=== PATIENT | male | born 1965 | race Caucasian/White ===

== ENCOUNTER 2019-04-02 12:20 | Emergency (ER) | payer OTHER ==
[2019-04-02 12:38] VITALS: BP 153/100; PULSE 80; TEMP 98.1; BMI 28.2
--- NOTE | 2019-04-02 13:32 | PDOC ---
History of Present Illness - General Chief Complaint: Blood Pressure Problem Stated Complaint: CHEST PAIN/HYPERTENSION Time Seen by Provider: 04/02/19 12:56 History Source: Patient Exam Limitations: Clinical Condition - History of Present Illness Initial Comments: 04/02/19 13:28 Patient with no significant past medical history and has not seen any medical care over the past 6 years presented with complaint of 2-day history of headache , wheezing, intermittent chest tightness and persistent elevated blood pressures when he checks his blood pressure for the past 2 days. Patient report has strong family history of cardiomyopathy and hypertension but has not seen PCP or have any medical care in the past 6 years. Denies nausea, vomiting , palpitation, shortness of breath, chest pains, numbness or tingling sensation , blurry vision or change in vision. Denies fever, chills. Denies any other symptoms Is this a multiple visit Asthma Patient?: No Past History - Past Medical History Allergies/Adverse Reactions: Allergies Allergy/AdvReac Type Severity Reaction Status Date / Time No Known Allergies Allergy Verified 04/02/19 12:34 Home Medications: Ambulatory Orders Amlodipine Besylate [Norvasc -] 5 mg PO DAILY #30 tablet 04/02/19 COPD: No HTN: Yes (family hx of HTN) - Psycho Social/Smoking Cessation Hx Smoking History: Never smoked Review of Systems - Review of Systems Able to Perform ROS?: Yes Is the patient limited Polish proficient: No Constitutional: Yes: Malaise. No: Chills, Fever HEENTM: Yes: Symptoms Reported, See HPI. No: Eye Pain, Blurred Vision, Tearing , Recent change in vision, Double Vision, Cataracts, Ear Pain, Ocular Prothesis , Ear Discharge, Nose Pain, Nose Congestion, Tinnitus, Nose Bleeding, Hearing Loss, Throat Pain, Throat Swelling, Mouth Pain, Dental Problems, Difficulty Swallowing, Mouth Swelling, Other Respiratory: Yes: Symptoms reported, See HPI, Shortness of Breath (intermittent) , Wheezing (intermittent). No: Cough, Orthopnea, SOB with Exertion, SOB at Rest , Stridor, Productive cough, Hemoptysis, Other Cardiac (ROS): Yes: Symptoms Reported, See HPI, Lightheadedness (intermittent). No: Chest Pain, Edema, Irregular Heart Rate, Palpitations, Syncope, Chest Tightness, Other ABD/GI: No: Symptoms Reported, See HPI, Nausea, Vomiting All Other Systems: Reviewed and Negative *Physical Exam - Vital Signs Last Vital Signs Temp Pulse Resp BP Pulse Ox 98.1 F 80 16 153/100 99 04/02/19 12:36 04/02/19 12:36 04/02/19 12:36 04/02/19 12:36 04/02/19 12:36 - Physical Exam 04/02/19 13:31 GENERAL: Well developed, well nourished. Awake and alert. No acute distress. HEENT: Normocephalic, atraumatic. PERRLA, EOMI. No conjunctival pallor. Sclera are non-icteric. Moist mucous membranes. Oropharynx is clear. NECK: Supple. Full ROM. CARDIOVASCULAR: Regular rate and rhythm. No murmurs, rubs, or gallops. Distal pulses are 2+ and symmetric. PULMONARY: No evidence of respiratory distress. Lungs clear to auscultation bilaterally. No wheezing, rales or rhonchi. ABDOMINAL: Soft. Non-tender. Non-distended. No rebound or guarding. No organomegaly. Normoactive bowel sounds. MUSCULOSKELETAL Normal range of motion at all joints. EXTREMITIES: No cyanosis. No clubbing. No edema. No calf tenderness. SKIN: Warm and dry. Normal capillary refill. No rashes. No jaundice. NEUROLOGICAL: Alert, awake, appropriate. Gait is normal without ataxia. PSYCHIATRIC: Cooperative. Good eye contact. Appropriate mood General Appearance: Yes: Nourished, Appropriately Dressed. No: Apparent Distress ED Treatment Course - LABORATORY CBC & Chemistry Diagram: 04/02/19 13:21 04/02/19 13:21 - RADIOLOGY Radiology Studies Ordered: Category Date Time Status CHEST PA & LAT [RAD] Stat Radiology 04/02/19 13:23 Ordered Medical Decision Making - Medical Decision Making 04/02/19 13:30 Patient with no significant past medical history and has not seen any medical care over the past 6 years presented with complaint of 2-day history of headache , wheezing, intermittent chest tightness and persistent elevated blood pressures when he checks his blood pressure for the past 2 days. Patient report has strong family history of cardiomyopathy and hypertension but has not seen PCP or have any medical care in the past 6 years. Denies nausea, vomiting , palpitation, shortness of breath, chest pains, numbness or tingling sensation , blurry vision or change in vision. Denies fever, chills. Denies any other symptoms Exam significant for mildly elevated BPs otherwise unremarkable exam with patient in no acute distress. EKG done from triage shows no acute abnormality. Patient symptoms likely undiagnosed hypertension with bronchospasm from URI versus less likely cardiogenic symptoms. CBC, CMP and cardiac profile lab ordered. Checks x-ray ordered to rule out acute abnormality given patient with complaint of worsening wheezing since last night. Treat based on lab and imaging results 04/02/19 15:21 CBC shows no acute abnormality. Cardiac profile and chemistry lab unremarkable. Chest x-ray shows no acute infiltrate abnormality. Patient symptoms likely caused elevated BPs and stable for discharge on low-dose amlodipine daily with referral to PCP to establish care Discharge - Discharge Information Problems reviewed: Yes Clinical Impression/Diagnosis: Essential hypertension, Dizziness Condition: Stable Disposition: HOME - Admission No - Additional Discharge Information Prescriptions: Amlodipine Besylate [Norvasc -] 5 mg PO DAILY #30 tablet - Follow up/Referral Referrals: [facility] [place] [Provider Group] - Patient Discharge Instructions Patient Printed Discharge Instructions: DI for High Blood Pressure, How to Monitor Your Blood Pressure at Home Additional Instructions: Your blood work is normal. Your chest x-ray shows no pneumonia. The symptoms is likely caused by high blood pressure. Take prescribed medication for blood pressure and follow-up referred primary care to establish primary care - Post Discharge Activity
[2019-04-02 13:38] LABS: BASO % 0.5 % (0-2.0); EOS % 6.2 % (0-4.5); HEMATOCRIT 48.9 % (35.4-49); HEMOGLOBIN 16.5 GM/dL (11.7-16.9); LYMPH % 23.8 % (8-40); MCH 26.8 pg (25.7-33.7); MCHC 33.7 g/dl (32.0-35.9); MEAN CELL VOLUME 79.6 fl (80-96); MEAN PLT VOLUME 10.3 fl (7.5-11.1); MONO % 5.7 % (3.8-10.2); NEUT % 63.8 % (42.8-82.8); PLATELET COUNT 162 K/MM3 (134-434); RBC 6.15 M/mm3 (4.00-5.60); RDW 14.3 % (11.9-15.9); WHITE BLOOD COUNT 5.4 K/mm3 (4.0-10.0)
[2019-04-02 14:14] LABS: ALK PHOS 71 U/L (45-117); ANION GAP 8 MMOL/L (8-16); BLOOD UREA NITROGEN 11.7 mg/dL (7-18); CALCIUM 9.3 mg/dL (8.5-10.1); CHLORIDE 105 mmol/L (98-107); CO2 26 mmol/L (21-32); CREATININE 1.1 mg/dL (0.55-1.3); GLUCOSE,RANDOM 125 mg/dL (74-106); POTASSIUM 3.8 mmol/L (3.5-5.1); SGOT/AST 26 U/L (15-37); SGPT/ALT 41 U/L (13-61); SODIUM 140 mmol/L (136-145); TOT PROT 7.8 g/dl (6.4-8.2)
--- NOTE | 2019-04-04 17:22 | EKG ---
Test Reason : Blood Pressure : / mmHG Vent. Rate : 077 BPM Atrial Rate : 077 BPM P-R Int : 166 ms QRS Dur : 090 ms QT Int : 360 ms P-R-T Axes : 062 -04 029 degrees QTc Int : 407 ms NORMAL SINUS RHYTHM POSSIBLE LEFT ATRIAL ENLARGEMENT NONSPECIFIC T WAVE ABNORMALITY ABNORMAL ECG NO PREVIOUS ECGS AVAILABLE Confirmed by NICOLASA JONES MD ([id number]) on 04/04/2019 5:22:40 PM Referred By: Confirmed By:NICOLASA JONES MD
== END 2019-04-02 14:50 | disposition home or self-care (01) ==
LOC: JER 12:20
DX: I10 Essential (primary) hypertension (principal); R42 Dizziness and giddiness
CPT/HCPCS: 36415; 71046-TC-FY; 80053; 82550; 82553; 84439; 84443; 84484; 85025; 93005; 93010; 99285-25

== ENCOUNTER 2019-04-02 23:48 | Emergency (ER) | payer OTHER ==
[2019-04-03 00:02] VITALS: PULSE 94; TEMP 98; BMI 29.4
--- NOTE | 2019-04-03 02:44 | PDOC ---
Attending Attestation - Resident Resident Name: Kelby Garvin - ED Attending Attestation I have performed the following: I have examined & evaluated the patient, The case was reviewed & discussed with the resident, I agree w/resident's findings & plan, Exceptions are as noted - HPI HPI: 04/16/19 19:39 See resident HPI - Physicial Exam PE: 04/16/19 19:39 Agree with exam as documented by resident - Medical Decision Making 04/16/19 19:40 Asymptomatic HTN, BP 148/102 evaluation for end organ damage not indicated dc, f/u with pcp
--- NOTE | 2019-04-03 02:49 | PDOC ---
History of Present Illness - General Chief Complaint: Blood Pressure Problem Stated Complaint: HYPERTENTION History Source: Patient Exam Limitations: No Limitations - History of Present Illness Initial Comments: 04/09/19 20:10 53 yo M with no past medical history (poor follow up with medicine) presents to the emergency department with concerns of BP. Per the patient, he presented to the emergency department within the past 24 hours for high blood pressure and was prescribed amlodipine 5 mg. Per the patient, he took the medications 1-2 hours prior to presentation and was concerned that his BP was still elevated with a systolic of 140s. The patient denies symptoms. Denies the following: fevers, chills, headache, visual changes, nausea, vomiting, chest pain, abdominal pain, dysuria, hematuria, diarrhea, and leg pain/swelling. Allergies: NKDA Past History - Past Medical History Allergies/Adverse Reactions: Allergies Allergy/AdvReac Type Severity Reaction Status Date / Time No Known Allergies Allergy Verified 04/02/19 23:59 Home Medications: Ambulatory Orders Amlodipine Besylate [Norvasc -] 5 mg PO DAILY #30 tablet 04/02/19 COPD: No HTN: Yes (family hx of HTN) - Psycho Social/Smoking Cessation Hx Smoking History: Never smoked Have you smoked in the past 12 months: No Information on smoking cessation initiated: No Hx Alcohol Use: No Drug/Substance Use Hx: No Review of Systems - Review of Systems Able to Perform ROS?: Yes Is the patient limited Welsh proficient: No Constitutional: No: Chills, Diaphoresis, Fever, Weight Stable HEENTM: No: Eye Pain, Ear Pain, Nose Pain, Throat Pain, Mouth Pain Respiratory: No: Cough, Shortness of Breath, Hemoptysis Cardiac (ROS): No: Chest Pain, Lightheadedness, Palpitations, Chest Tightness ABD/GI: No: Constipated, Diarrhea, Difficulty Swallowing, Nausea, Poor Fluid Intake, Rectal Bleeding, Vomiting, Tarry Stools : No: Burning, Dysuria, Hematuria, Incontinence Musculoskeletal: No: Back Pain, Joint Pain, Neck Pain Integumentary: No: Bruising, Flushing, Rash Neurological: No: Headache, Seizure, Tingling, Tremors Psychiatric: No: Change in Appetite Endocrine: No: Unexplained Weight Loss Hematologic/Lymphatic: No: Anemia *Physical Exam - Vital Signs Last Vital Signs Temp Pulse Resp BP Pulse Ox 98.0 F 94 H 20 148/102 H 98 04/02/19 23:59 04/02/19 23:59 04/02/19 23:59 04/02/19 23:59 04/02/19 23:59 - Physical Exam General Appearance: Yes: Nourished, Appropriately Dressed. No: Apparent Distress, Intoxicated HEENT: positive: EOMI, JOHANA, Normal ENT Inspection, Normal Voice, Symmetrical, TMs Normal, Pharynx Normal, Hearing Grossly Normal. negative: Pale Conjunctivae , Scleral Icterus (R), Scleral Icterus (L), Muffled/Hoarse voice, Pharyngeal Erythema, Tonsillar Exudate, Tonsillar Erythema, Nasal Congestion, Excessive drooling Neck: positive: Trachea midline, Supple. negative: Tender, Lymphadenopathy (R) , Lymphadenopathy (L) Respiratory/Chest: positive: Lungs Clear, Normal Breath Sounds. negative: Chest Tender, Respiratory Distress, Accessory Muscle Use, Rales, Rhonchi, Stridor, Wheezing, Hyperresonant Cardiovascular: positive: Regular Rhythm, Regular Rate, S1, S2. negative: Systolic Murmur Gastrointestinal/Abdominal: positive: Normal Bowel Sounds, Flat, Soft. negative : Tender, Distended, Guarding, Rebound, Tenderness Lymphatic: negative: Adenopathy Musculoskeletal: positive: Normal Inspection, CVA Tenderness. negative: Vertebral Tenderness Extremity: positive: Normal Capillary Refill, Normal Inspection, Normal Range of Motion. negative: Tender, Swelling, Calf Tenderness Integumentary: positive: Normal Color, Dry, Warm. 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 Per the patient, he presented to the emergency department within the past 24 hours for high blood pressure and was prescribed amlodipine 5 mg. Initial vitals; Initial Vital Signs Temp Pulse Resp BP Pulse Ox 98.0 F 94 H 20 148/102 H 98 04/02/19 23:59 04/02/19 23:59 04/02/19 23:59 04/02/19 23:59 04/02/19 23:59 Work up: patient presents to the emergency department with concerns of elevated blood pressure after a recent visit to our ED for similar chief complaint I explained to the patient that their blood pressure was not at a concerning level The patient denies current symptoms, specifically denying the following: chest pain, SOB, nausea, vomiting, lightheadedness, back pain, abdominal pain, and neck pain. Patient was given education on concerning blood pressure levels and advised to follow up with their PMD for HTN evaluation. The patient understood the plan and agreed. He also understands the need to take the amlodipine as directed on the label in the future. Dispo: Discharge Discharge - Discharge Information Problems reviewed: Yes Clinical Impression/Diagnosis: High blood pressure Disposition: HOME - Admission No - Follow up/Referral Referrals: [facility] [place] [facility] [place] [Provider Group] Edilberto Watts MD [Staff Physician] - - Patient Discharge Instructions Patient Printed Discharge Instructions: DI for High Blood Pressure, Abdominal Hernia, How to Monitor Your Blood Pressure at Home Additional Instructions: You were seen in the emergency department for the evaluation of your high blood pressure. Your blood pressure is within normal limits. Please come to the emergency department if you systolic blood pressure, which is the top number, is greater than 180 and please come to the emergency department if your blood pressure on the bottom, the diastolic, is 120. Please follow up with the primary medical doctor referred to you within 1 week after discharge for blood pressure management. THIS IS VERY IMPORTANT. Please see the surgeon within 1 week after discharge for follow up on the umbilical hernia. Please take the medication prescribed to you as written. Usted fue visto en el departamento de emergencias para la evaluacin de maza presin arterial velma. Maza presin arterial est dentro de los lmites normales. Acuda al departamento de emergencias si maza presin arterial sistlica, que es el nmero superior, es mayor a 180 y acuda al departamento de emergencias si maza presin arterial en la parte inferior, la diastlica, es 120. Por favor, toney un seguimiento con el mdtiffany hamm. El mdico lo remiti dentro de 1 semana despus del velma para el control de la presin arterial. ESTO ES MUY IMPORTANTE. Consulte al cirujano dentro de 1 semana despus del velma para el seguimiento de la hernia umbilical. [place] la medicacin que le recetaron rachel jennie est escrita Print Language: SLOVENIAN - Post Discharge Activity
[2019-04-03 03:13] VITALS: BP 145/98
== END 2019-04-03 03:13 | disposition home or self-care (01) ==
LOC: JER 23:48
DX: I10 Essential (primary) hypertension (principal)
CPT/HCPCS: 99281-25